=== PATIENT | male | born 1950 | race Two or more races ===

== ENCOUNTER 2021-08-18 16:53 | Emergency (ER) | payer MEDICARE, BC ==
[~2021-08-18] VITALS: Ht 175.3 cm; Wt 86.2 kg
[2021-08-18] MEDS ORDERED: LORAZEPAM INJ 2 MG/ML VIAL IV ONE (17:00)
[2021-08-18] MEDS ORDERED: ONDANSETRON HCL/PF 4 MG/2 ML VIAL IV ONE (17:00)
--- NOTE | 2021-08-18 17:00 | NUR ---
JELLY Hong FROM HOME C/O "HE ATE TOO MUCH BROWNIE EDIBLES" EPISODE OF VOMITING ON THE SCENE PER EMS. 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 ALERT AND ORIENTED. RR EVEN AND UNLABORED.SAFETY PRECAUTIONS INITIATED PER PROTOCOL
[2021-08-18] MEDS ORDERED: ONDANSETRON HCL/PF 4 MG/2 ML VIAL ONE (17:05)
[2021-08-18] MEDS ORDERED: LORAZEPAM INJ 2 MG/ML VIAL ONE (17:09)
[2021-08-18] MEDS ORDERED: ONDA4TAB5 PO (21:58)
--- NOTE | 2021-08-18 23:27 | NUR ---
called for pickup. eta ten minutes.
[2021-08-18 23:48] VITALS: BP 127/78
--- NOTE | 2021-08-18 23:57 | NUR ---
Patient discharged to home in stable condition. RX AND Written and verbal after care instructions given. Patient verbalizes understanding of instruction.IV removed. Catheter intact and site benign. Pressure and 4x4 applied to site. No bleeding noted.
== END 2021-08-19 | disposition home or self-care (01) ==
LOC: ER 16:56
DX: F12.929 Cannabis use, unspecified with intoxication, unspecified (principal); R53.1 Weakness; R11.2 Nausea with vomiting, unspecified
CPT/HCPCS: 93005; 96374; 96375; 99285; J2060; J2405